=== PATIENT | female | born 1965 | race Caucasian/White ===

== ENCOUNTER 2024-02-25 10:40 | Emergency (ER) | payer OTHER, SELFPAY ==
[2024-02-25 10:50] VITALS: BP 190/105
--- NOTE | 2024-02-25 11:23 | ED.GENMED ---
History of Present Illness
General
Chief Complaint: Cold/Flu/URI Symptoms
Time Seen by Provider: 02/25/24 11:01
History of Present Illness
History of Present Illness:
HPI: Several weeks ago, the patient had ear congestion and dizziness. She went to a [facility] clinic where they diagnosed her with a right cerumen impaction. She went to ENT the following day where she had a disimpaction. She continued to feel
unwell. More recently she has had cough and congestion and now has yellow mucus production. She has had no fevers. She states antibiotics have helped her in the past. She does not want to go back on steroids as she has poor bone density that was
felt to be related to recurrent steroid use. She tested her cell for COVID which was negative.
EXAM:
GENERAL: Well appearing in no distress
HEENT: Moist oral mucosa, TMs are clear with no evidence of cerumen impaction
PULMONARY: No respiratory distress, breath sounds are clear and equal
NEUROLOGIC: Excellent strength all extremities, no coordination deficits
PSYCHIATRIC: Appropriate mental status, normal insight and judgement
EXTREMITIES: Nontender, no edema, moves all extremities equally
SKIN: No rash, no lesions
TIME OF INITIAL ENCOUNTER: 11:30 AM
NUMBER AND COMPLEXITY OF PROBLEMS ADDRESSED AT THE ENCOUNTER
� Chronic conditions affecting care: Asthma
� Acute Exacerbation and/or Progression of Chronic Illness: This is an acute problem
� Differential Diagnosis includes: Prolonged viral syndrome, reactive airway disease, pneumonia, bronchitis
AMOUNT AND/OR COMPLEXITY OF DATA TO BE REVIEWED AND ANALYZED
� I performed an independent evaluation of and my interpretation is:
EKG:
CT:
X-rays: Chest x-ray shows no acute abnormality
Laboratory Studies: COVID-negative
Other:
� Review of other/old records: No old records available for review in [facility].
� Clinical information was obtained by an independent historian: None needed
� Prescriptions/Medications Considered but not given: Consider DuoNeb for the patient declines indicating that albuterol has not helped her and she has clear lung sounds moving air well
� Further testing considered but not performed:
RISK OF COMPLICATIONS AND/OR MORBIDITY OR MORTALITY OF PATIENT MANAGEMENT
� Social determinants of health affecting care: Lives at home
� Discussion with other providers:
� Escalation of care including admission/observation vs risk of discharge considered: Although this very well could be a prolonged viral illness, her symptoms have been ongoing for over 3 weeks now. Will start antibiotics. She
responded well to a Z-Jesus in the past.
Phy Exam
Physical Exam
Physical Exam:
See HPI
Course
Orders/Labs/Results
Orders:
Orders
02/25/24 11:20
CXR2 [CR Chest - 2 Views ] Urgent
Comment:
Reason For Exam: chest congestion
02/25/24 11:30
COVID-19 Antigen Urgent
Source: Nasal Swab
02/25/24 11:36
Azithromycin [Zithromax] 500 mg PO NOW STA
Vital Signs
Initial and Last Documented VS:
Initial Vital Signs
Temp Pulse Resp BP Pulse Ox
98.4 F 83 18 190/105 98
02/25/24 10:50 02/25/24 10:50 02/25/24 10:50 02/25/24 10:50 02/25/24 10:50
Last Documented Vital Signs
Temp Pulse Resp BP Pulse Ox
98.4 F 83 18 190/105 98
02/25/24 10:50 02/25/24 10:50 02/25/24 10:50 02/25/24 10:50 02/25/24 10:50
*Critical Care Note
Total Time (30-74mins, 75-104mins- exclusive of procedures): Not Applicable
ED Attending Note
-
Portions of this chart may have been created with voice recognition software.� Occasional wrong word or��sound alike� substitutions may have occurred due to the inherent limitations of voice recognition software.
Discharge Plan
Departure
Patient Disposition: Home (Routine Discharge)
Date of Disposition: 02/25/24
Time of Disposition: 12:19
Patient with high blood pressure during this ER visit?: Yes
Discharge Problem:
Acute bronchitis
Instructions: Acute Bronchitis, Adult (DC), BLOOD PRESSURE
Prescriptions:
New
azithromycin [Zithromax] 250 mg tablet
250 mg PO DAILY Qty: 4 0RF
Activity Restrictions/Additional Instructions:
Since her symptoms have been going on for several weeks now, we can try an antibiotic. The chest x-ray shows no sign of pneumonia. Your blood pressure was elevated I recommend you follow-up with your primary care doctor for reassessment.
Interventions
Interventions:
*Risk Screen - Suicide Last Done: 02/25/24 11:26
*General Assessment Last Done: 02/25/24 11:26
*Neglect/Abuse Screening Last Done: 02/25/24 11:26
ED- Fall Risk Assessment Last Done: 02/25/24 11:33
*ED COVID-19 Vaccine History Last Done: 02/25/24 11:26
ED- Pulmonary Assessment Last Done: 02/25/24 11:33
Discharge Date and Time
Print Language: ESTONIAN
[2024-02-25 11:26] VITALS: BMI 18.9
[2024-02-25 11:28] VITALS: BP 131/81
[2024-02-25 12:01] LABS: COVID-19 Antigen Negative (Negative)
[2024-02-25] MEDS: ZITHROMAX 500 MG PO (12:08)
[2024-02-25 12:09] VITALS: BP 127/77
== END 2024-02-25 13:05 | disposition home or self-care (01) ==
LOC: EMR 10:40
PROVIDERS: EMERGENCY PHYSICIAN Emergency Medicine; FAMILY PHYSICIAN Family Medicine
DX: J20.9 Acute bronchitis, unspecified (principal); Z11.52 Encounter for screening for COVID-19
CPT/HCPCS: 99284; 71046; 87811